=== PATIENT | female | born 1950 | race Caucasian/White ===

== ENCOUNTER 2017-05-12 19:23 | Emergency (ER) | payer OTHER ==
[~2017-05-12] VITALS: Ht 157.5 cm; Wt 46.5 kg
[2017-05-13 00:41] LABS: HEMATOCRIT 39.5 % (36.0-46.0); HEMOGLOBIN 13.4 G/DL (11.9-15.5); MCH 30.3 PG (29.0-34.0); MCHC 33.9 G/DL (30.0-36.0); MCV 89.4 FL (83-99); PLATELET COUNT 456 K/uL (156-360); RBC DIS.WIDTH-CV 12.2 % (11.8-14.6); RED BLOOD COUNT 4.42 M/uL (3.80-5.20); WHITE BLOOD COUNT 20.8 K/uL (4.1-10.2)
[2017-05-13 00:48] LABS: ALBUMIN 3.8 g/dL (3.2-4.8); CHLORIDE 106 mEq/L (99-109); POTASSIUM 4.5 mEq/L (3.7-5.4); SODIUM 141 mEq/L (136-147)
[2017-05-13 00:50] LABS: GLUCOSE 130 mg/dL (70-99); TOTAL PROTEIN 6.5 g/dL (6.4-8.3)
[2017-05-13 00:52] LABS: TOTAL BILIRUBIN 0.5 mg/dL (0.0-1.0)
[2017-05-13 00:54] LABS: ALKALINE PHOSPHATASE 57 IU/L (3-129); CREATININE 0.8 mg/dL (0.6-1.3); GFR ESTIMATE (CALCULATED) > 59 mL/min/
[2017-05-13 00:55] LABS: UREA NITROGEN (BUN) 20 mg/dL (9-23)
[2017-05-13 00:56] LABS: AST (GOT) 14 IU/L (2-34)
[2017-05-13 00:57] LABS: ALT (GPT) 10 IU/L (3-49); LIPASE 21 U/L (1.0-51.0)
[2017-05-13 01:24] LABS: APPEARANCE SL.HAZY ((CLEAR)); BILIRUBIN NEGATIVE; BLOOD NEGATIVE; COLOR YELLOW ((YELLOW)); GLUCOSE (STRIP) NEGATIVE; KETONES 20; LEUKOCYTES NEGATIVE; NITRITE NEGATIVE; PROTEIN (STRIP) 30; SPECIFIC GRAVITY 1.024 (1.000-1.030); UROBILINOGEN 0.2 MG/DL (0.2-1.0)
[2017-05-13 01:31] LABS: BACTERIA NONE SEEN /HPF; EPITHELIAL CELLS 1+ /HPF; MUCUS TRACE /LPF; RED BLOOD CELLS 0-5 /HPF (0-5); UCUL ADDED? NO; WHITE BLOOD CELLS 0-5 /HPF (0-5)
[2017-05-13] MEDS ORDERED: ZOFRAN4 MG PO (02:48)
[2017-05-13 03:07] VITALS: BP 105/52
== END 2017-05-13 03:07 | disposition home or self-care (01) ==
LOC: EME 19:23
PROVIDERS: Emergency Medicine
DX: R10.30 Lower abdominal pain, unspecified (principal); R11.2 Nausea with vomiting, unspecified; R19.7 Diarrhea, unspecified; Z87.440 Personal history of urinary (tract) infections; Z88.2 Allergy status to sulfonamides
CPT/HCPCS: 74176; 80053; 81003; 83690; 85027; 87086; 99281; 99285; J1885; J2270; J2405; J7030